=== PATIENT | female | born 1990 | race Caucasian/White ===

== ENCOUNTER 2019-06-03 23:42 | Emergency (ER) | payer SELFPAY ==
[~2019-06-03] VITALS: Ht 165.1 cm; Wt 77.1 kg
--- OUTSIDE RECORDS SUMMARY | 2019-06-03 23:51 | XMS REPORT ---
Author Author Migration, Doctor Organization [facility] Address Unknown Phone Unavailable Care Team Providers Care New Patient Escort Name Role Phone Migration, Doctor Unavailable Unavailable PROBLEMS Type Condition ICD9-CM Code OUS89-DQ Code Onset Dates Condition Status SNOMED Code Problem Acute bronchitis, unspecified organism J20.9 Active 63512214 Problem Gastroesophageal reflux disease, esophagitis presence not specified K21.9 Active [id number] ALLERGIES No Information ENCOUNTERS Encounter Location Date Diagnosis [facility] [address] [facility] [address] [id number], [place] [id number] Sep, Gastroesophageal reflux disease, esophagitis presence not specified K21.9 and Anterior cervical adenopathy R59.0 [facility] T[address] [place] [address] AVE [id number], [place] [id number] Jun, [facility] [address] [id number], [place] [id number] Jan, Allergic contact dermatitis, unspecified trigger L23.9 [facility] [address] [id number], [place] [id number] Sep, Acute bronchitis, unspecified organism J20.9 [facility] [id number], [place] [id number] Jul, Ingrown left greater toenail 703.0 [facility] TATE [address] [facility] [address] [id number], [place] [id number] Jun, Ingrowing toenail with infection 703.0 [facility] [id number], [place] [id number] March, [facility] [address] [id number], [place] [id number] March, [facility] [address] [id number], [place] [phone] Feb, [facility] [address] [id number] [place] [address] Dec, [facility] [address] [facility] [id number] [place] [address] Dec, [facility] [address] [facility] [id number] [place] [address] Apr, IMMUNIZATIONS No Known Immunizations SOCIAL HISTORY Never Assessed REASON FOR VISIT PLAN OF CARE VITAL SIGNS MEDICATIONS No Known Medications RESULTS No Results PROCEDURES No Known procedures INSTRUCTIONS MEDICATIONS ADMINISTERED No Known Medications MEDICAL (GENERAL) HISTORY Type Description Date Medical History depression Medical History anxiety Medical History migraine headaches Surgical History tubal ligation Surgical History shoulder repair Surgical History tonsillectomy and adenoidectomy
--- OUTSIDE RECORDS SUMMARY | 2019-06-03 23:51 | XMS REPORT ---
Author Author FRANCOISE CASILLAS Organization [facility] Address [address] [place] [address] Care Team Providers Care Patternmaker Sample Name Role Phone FRANCOISE CASILLAS Unavailable PROBLEMS Type Condition ICD9-CM Code QCC87-XD Code Onset Dates Condition Status SNOMED Code Problem Gastroesophageal reflux disease, esophagitis presence not specified K21.9 Active 755925996 Problem Acute bronchitis, unspecified organism J20.9 Active 35427858 ALLERGIES No Known Allergies ENCOUNTERS Encounter Location Date Diagnosis [facility] [employer] [address] [id number], [place] [id number] Sep, Gastroesophageal reflux disease, esophagitis presence not specified K21.9 and Anterior cervical adenopathy R59.0 [facility] [address] [id number], [place] [id number] Jun, [facility] [address] [id number], [place] [id number] Jan, Allergic contact dermatitis, unspecified trigger L23.[address] [facility] [id number], [place] [id number] Sep, Acute bronchitis, unspecified organism J20.9 [facility] [id number] [place] [id number] Jul, Ingrown left greater toenail 703.0 [facility] [address] [id number], [place] [id number] Jun, Ingrowing toenail with infection 703.0 [facility]IT[facility] [place] [address] [id number] [place] [phone] March, [facility] [place] [address] [id number] [place] [phone] March, [facility] [place] [id number] [place] [address], [place] [phone] Feb, [facility] [address] [facility] [id number] [place] [address] Dec, [facility] [address] [facility] [id number] [place] [address] Dec, [facility] [address] [facility] [id number] [place] [address] Apr, IMMUNIZATIONS No Known Immunizations SOCIAL HISTORY Never Assessed REASON FOR VISIT GERD, pt feels like throat is swollen Nicolas RN PLAN OF CARE Activity Details Follow Up prn Reason: Pending Test Ultrasound : Neck VITAL SIGNS Height 66.0 in 2018-10-06 Weight 187.7 lbs 2018-10-06 Temperature 98.0 degrees Fahrenheit 2018-10-06 Heart Rate 94 bpm 2018-10-06 Respiratory Rate 18 2018-10-06 BMI 30.29 kg/m2 2018-10-06 Blood pressure systolic 110 mmHg 2018-10-06 Blood pressure diastolic 80 mmHg 2018-10-06 MEDICATIONS Medication Instructions Dosage Frequency Start Date End Date Duration Status Zantac 150 Maximum Strength 150 MG Orally 3 times a day 1 tablet 8h 30 day(s) Active Pantoprazole Sodium 20 mg Orally Once a day 1 tablet 24h Sep, 30 day(s) Active RESULTS No Results PROCEDURES No Known procedures INSTRUCTIONS MEDICATIONS ADMINISTERED No Known Medications MEDICAL (GENERAL) HISTORY Type Description Date Medical History depression Medical History anxiety Medical History migraine headaches Surgical History tubal ligation Surgical History shoulder repair Surgical History tonsillectomy and adenoidectomy
--- OUTSIDE RECORDS SUMMARY | 2019-06-03 23:51 | XMS REPORT ---
Author Author VERO CHEN [facility] Address Unknown Phone Unavailable Care Team Providers Care Director Of Operations For Therapy Name Role Phone VERO CHEN Unavailable Allergies, Adverse Reactions, Alerts Substance Reaction Event Type N.K.D.A. Info Not Available Non Drug Allergy Problems Problem Type Condition ICD-9 Code Onset Dates Condition Status Assessment Ingrown left greater toenail 703.0 Active Medications Medication Code System Code Instructions Start Date End Date Status Dosage Xanax [facility] [address]-50 0.5 MG Orally Three times a day 1 tablet Zoloft [facility] [address]-20 100 MG Orally Once a day 1 tablet Procedures Procedure Coding System Code Date EXCISION OF NAIL FOLD, TOE CPT-4 49251 Jul 30, 2015 Vital Signs Date/Time: Jul 30, 2015 Temperature 98.7 F Weight 160.8 lbs Height 66.0 in BMI 25.95 Index Blood Pressure Diastolic 78 mmHg Blood Pressure Systolic 116 mmHg Cardiac Monitoring Heart Rate 80 bpm Results No Known Results Summary Purpose eClinicalWorks Submission
--- OUTSIDE RECORDS SUMMARY | 2019-06-03 23:51 | XMS REPORT ---
Author Author VIKTORIYA WISDOM [facility] Address [address] [place] [address] Care Team Providers Care Dispatcher Tow Truck Name Role Phone VIKTORIYA WISDOM Unavailable PROBLEMS Type Condition ICD9-CM Code HBQ88-KE Code Onset Dates Condition Status SNOMED Code Problem Acute bronchitis, unspecified organism J20.9 Active 43122614 ALLERGIES No Information ENCOUNTERS Encounter Location Date Diagnosis [address]00565100[place] [phone] Jun, [id number] [place] [id number] Jan, Allergic contact dermatitis, unspecified trigger L23.9 [address]00565100[place] [id number] Sep, Acute bronchitis, unspecified organism J20.9 [facility] [id number] [place] [id number] Jul, Ingrown left greater toenail 703.0 [address]00565100[place] [id number] Jun, Ingrowing toenail with infection 703.0 [facility] [id number] [place] [id number] March, [facility] [id number] [place] [id number] March, [facility] [id number] [place] [id number] Feb, [facility] [id number] [place] [address] Dec, [facility] [address] [address] Dec, [facility] [address] [facility] [id number] [place] [address] Apr, IMMUNIZATIONS No Known Immunizations SOCIAL HISTORY Never Assessed REASON FOR VISIT Requests return call PLAN OF CARE VITAL SIGNS MEDICATIONS Unknown Medications RESULTS No Results PROCEDURES No Known procedures INSTRUCTIONS MEDICATIONS ADMINISTERED No Known Medications MEDICAL (GENERAL) HISTORY Type Description Date Medical History depression Medical History anxiety Medical History migraine headaches Surgical History tubal ligation Surgical History shoulder repair Surgical History tonsillectomy and adenoidectomy
--- OUTSIDE RECORDS SUMMARY | 2019-06-03 23:51 | XMS REPORT ---
Author Author Migration, Doctor Organization [facility] Address Unknown Phone Unavailable Care Team Providers Care Bisque Cleaner Name Role Phone Migration, Doctor Unavailable Unavailable PROBLEMS Type Condition ICD9-CM Code JIG20-AU Code Onset Dates Condition Status SNOMED Code Problem Acute bronchitis, unspecified organism J20.9 Active 51730905 Problem Gastroesophageal reflux disease, esophagitis presence not specified K21.9 Active 000190943 ALLERGIES No Information ENCOUNTERS Encounter Location Date Diagnosis [facility] [address] [id number], [place] [id number] Sep, Gastroesophageal reflux disease, esophagitis presence not specified K21.9 and Anterior cervical adenopathy R59.0 [facility] TATE [address] [place] [address] AVE [id number], [place] [id number] Jun, [facility] [address] [id number], [place] [phone] Jan, Allergic contact dermatitis, unspecified trigger L23.9 [facility] [address] [id number], [place] [id number] Sep, Acute bronchitis, unspecified organism J20.9 [facility] [id number], [place] [phone] Jul, Ingrown left greater toenail 703.0 [facility] TATE [address] [facility] [address] [id number], [place] [id number] Jun, Ingrowing toenail with infection 703.0 [facility] [id number], [place] [phone] March, [facility] [address] [id number], [place] [phone] March, [facility] [address] [id number], [place] [id number] Feb, [facility] [address] [id number] [address] Dec, [facility] [address] [facility] [id number] [place] [address] Dec, [facility] [address] [facility] [id number] [place] [address] Apr, IMMUNIZATIONS No Known Immunizations SOCIAL HISTORY Never Assessed REASON FOR VISIT [facility] PLAN OF CARE VITAL SIGNS MEDICATIONS No Known Medications RESULTS No Results PROCEDURES No Known procedures INSTRUCTIONS MEDICATIONS ADMINISTERED No Known Medications MEDICAL (GENERAL) HISTORY Type Description Date Medical History depression Medical History anxiety Medical History migraine headaches Surgical History tubal ligation Surgical History shoulder repair Surgical History tonsillectomy and adenoidectomy
--- OUTSIDE RECORDS SUMMARY | 2019-06-03 23:51 | XMS REPORT ---
Author Author TERELL KEYS [facility] Address [address] [place] [address] Care Team Providers Care Radiology Interventional Physician Name Role Phone TERELL KEYS Unavailable PROBLEMS Type Condition ICD9-CM Code SAX30-YC Code Onset Dates Condition Status SNOMED Code Problem Acute bronchitis, unspecified organism J20.9 Active 79101019 ALLERGIES No Known Allergies ENCOUNTERS Encounter Location Date Diagnosis [address] [id number], [place] [phone] Jan, Allergic contact dermatitis, unspecified trigger L23.9 [address]00565100[place], [place] [id number] Sep, Acute bronchitis, unspecified organism J20.9 [facility] [id number] [place] [id number] Jul, Ingrown left greater toenail 703.[address] [id number], [place] [id number] Jun, Ingrowing toenail with infection 703.0 [facility] [id number], [place] [id number] March, [facility] [id number], [place] [id number] March, [facility] [id number], [place] [id number] Feb, [facility] [id number] [place] [phone] Dec, [facility] [id number] [place] [phone] Dec, [facility] [id number] [place] [phone] Apr, IMMUNIZATIONS No Known Immunizations SOCIAL HISTORY Never Assessed REASON FOR VISIT Sinus c/o, cough and chest congestion for 5 days and getting worse. afshanerRKaden PLAN OF CARE Activity Details Follow Up prn Reason: VITAL SIGNS Height 66.0 in 2017-10-03 Weight 177.7 lbs 2017-10-03 Temperature 98.6 degrees Fahrenheit 2017-10-03 Heart Rate 100 bpm 2017-10-03 Respiratory Rate 16 2017-10-03 Oximetry 98 % 2017-10-03 BMI 28.68 kg/m2 2017-10-03 Blood pressure systolic 128 mmHg 2017-10-03 Blood pressure diastolic 70 mmHg 2017-10-03 MEDICATIONS Medication Instructions Dosage Frequency Start Date End Date Duration Status Azithromycin 250 MG Orally Once a day 2 tablets on the first day, then 1 tablet daily for 4 days 24h Sep, Sep, 5 day(s) Active Ventolin HFA 108 (90 Base) MCG/ACT Inhalation 4 times a day 2 puffs as needed 6h Sep, Active Uzma-Kayla Pls Sinus & Cough 10-5-325 MG Orally every 4 hrs 2 capsules as needed 4h Active RESULTS No Results PROCEDURES Procedure Date Ordered Result Body Site MEASURE BLOOD OXYGEN LEVEL Oct 03, 2017 INSTRUCTIONS MEDICATIONS ADMINISTERED No Known Medications MEDICAL (GENERAL) HISTORY Type Description Date Medical History depression Medical History anxiety Medical History migraine headaches Surgical History tubal ligation Surgical History shoulder repair Surgical History tonsillectomy and adenoidectomy
--- OUTSIDE RECORDS SUMMARY | 2019-06-03 23:51 | XMS REPORT ---
Author Author VIKTORIYA WISDOM [facility] Address [address] [place] [address] Care Team Providers Care Pnp Name Role Phone VIKTORIYA WISDOM Unavailable PROBLEMS Type Condition ICD9-CM Code QVI07-MZ Code Onset Dates Condition Status SNOMED Code Problem Acute bronchitis, unspecified organism J20.9 Active 08009310 ALLERGIES No Known Allergies ENCOUNTERS Encounter Location Date Diagnosis [facility] TATE[address]00565100[place], [place] [phone] May, [address] [id number] [place] [phone] Jan, Allergic contact dermatitis, unspecified trigger L23.9 [address]00565100[place], [place] [phone] Sep, Acute bronchitis, unspecified organism J20.9 [facility] [id number] [place] [id number] Jul, Ingrown left greater toenail 703.[address] [id number], [place] [phone] Jun, Ingrowing toenail with infection 703.0 [facility] [id number] [place] [id number] March, [facility] [id number] [place] [phone] March, [facility] [id number] [place] [id number] Feb, [facility] [id number] [place] [phone] Dec, [facility] [id number] [place] [phone] Dec, [facility] [address] [facility] [id number] [place] [address] Apr, IMMUNIZATIONS No Known Immunizations SOCIAL HISTORY Never Assessed REASON FOR VISIT rash- c/o rash to arm, ear, chin, bottom- Merary SALCEDO PLAN OF CARE Activity Details Follow Up prn Reason: VITAL SIGNS Height 66.0 in 2018-01-22 Weight 173.6 lbs 2018-01-22 Temperature 97.8 degrees Fahrenheit 2018-01-22 Heart Rate 115 bpm 2018-01-22 Respiratory Rate 18 2018-01-22 BMI 28.02 kg/m2 2018-01-22 Blood pressure systolic 119 mmHg 2018-01-22 Blood pressure diastolic 85 mmHg 2018-01-22 MEDICATIONS Medication Instructions Dosage Frequency Start Date End Date Duration Status PredniSONE 20 MG Orally Once a day 2 tablet 24h Jan, Jan, 05 days Active Triamcinolone Acetonide 0.1 % Externally Twice a day 1 application to affected area 12h Jan, 07 days Active RESULTS No Results PROCEDURES No Known procedures INSTRUCTIONS MEDICATIONS ADMINISTERED No Known Medications MEDICAL (GENERAL) HISTORY Type Description Date Medical History depression Medical History anxiety Medical History migraine headaches Surgical History tubal ligation Surgical History shoulder repair Surgical History tonsillectomy and adenoidectomy
[2019-06-04] MEDS ORDERED: URIN1STR81 MC (00:25)
[2019-06-04 00:44] LABS: CLARITY,URINE SLIGHTLY CLOUDY; COLOR,URINE RED
[2019-06-04] MEDS ORDERED: KETOROLAC 30 MG/ML VIAL IVP ONE (00:45)
[2019-06-04 00:48] LABS: BACTERIA,URINE LARGE /HPF; SQUAMOUS EPITHELIAL CELL,UR 25-50 /HPF; WBC,URINE 50-100 /HPF
[2019-06-04 00:59] LABS: BASOPHILS % (AUTO) 0 % (0-10); EOSINOPHILS # (AUTO) 0.2 10^3/uL (0.0-0.3); EOSINOPHILS % (AUTO) 2 % (0-10); HEMATOCRIT 36 % (35-52); HEMOGLOBIN 11.8 G/DL (11.5-16.0); LYMPHOCYTES # (AUTO) 2.6 X 10^3 (1.0-4.0); LYMPHOCYTES % (AUTO) 30 % (12-44); MEAN CORPUSCULAR HEMOGLOBIN 28 PG (25-34); MEAN CORPUSCULAR HGB CONC 33 G/DL (32-36); MEAN CORPUSCULAR VOLUME 84 FL (80-99); MEAN PLATELET VOLUME 10.7 FL (7.4-10.4); MONOCYTES # (AUTO) 0.5 X 10^3 (0.0-1.0); MONOCYTES % (AUTO) 6 % (0-12); NEUTROPHILS # (AUTO) 5.3 X 10^3 (1.8-7.8); NEUTROPHILS % (AUTO) 61 % (42-75); PLATELET COUNT 291 10^3/uL (130-400); RED CELL DISTRIBUTION WIDTH 14.1 % (10.0-14.5); WHITE BLOOD COUNT 8.6 10^3/uL (4.3-11.0)
[2019-06-04 01:18] LABS: ALANINE AMINOTRANSFERASE 8 U/L (0-55); ALBUMIN 4.2 GM/DL (3.2-4.5); ALKALINE PHOSPHATASE 74 U/L (40-136); BILIRUBIN,TOTAL 0.3 MG/DL (0.1-1.0); BUN/CREATININE RATIO 11; CALCIUM 9.6 MG/DL (8.5-10.1); CARBON DIOXIDE 22 MMOL/L (21-32); CHLORIDE 108 MMOL/L (98-107); CREATININE SERUM 0.96 MG/DL (0.60-1.30); GFR ESTIMATED > 60; GLUCOSE 103 MG/DL (70-105); POTASSIUM 3.7 MMOL/L (3.6-5.0); SODIUM 142 MMOL/L (135-145)
--- NOTE | 2019-06-04 02:44 | ED GU-Female ---
General Chief Complaint: - Urinary Stated Complaint: KIDNEY PAIN,CAN'T URINATE Nursing Triage Note: PAINFUL/DIFFICULT URINATION, LOWER BACK/ABD PAIN X1 WEEK Nursing Sepsis Screen: No Definite Risk Source: patient Exam Limitations: no limitations History of Present Illness Date Seen by Provider: Jun 03, 2019 Time Seen by Provider: 23:48 Initial Comments This 28-year-old young lady presents to the emergency room with left lower quadrant pain radiating through to the back. Symptoms have been present for about one week. Urine has been brown in color. She has pelvic pain with urination. She denies nausea, vomiting, constipation, or diarrhea. Last menstrual period was March 26. Her primary care provider is the [facility] in [place]. She took Azo about 3 hours ago. Allergies and Home Medications Allergies Coded Allergies: No Known Drug Allergies (Unverified , 06/04/19) Home Medications Cephalexin 500 Mg Capsule, 500 MG PO QID Prescribed by: ZOILA JC on 06/04/19 0246 Patient Home Medication List Home Medication List Reviewed: Yes Review of Systems Review of Systems Constitutional: no symptoms reported EENTM: no symptoms reported Respiratory: no symptoms reported Cardiovascular: no symptoms reported Gastrointestinal: see HPI Genitourinary: see HPI : No LMP: March 26, 2019 Musculoskeletal: no symptoms reported Skin: no symptoms reported Psychiatric/Neurological: No Symptoms Reported Endocrine: No Symptoms Reported Past Jjxueti-Ongsyf-Stnxwp Hx Past Med/Social Hx: Reviewed Nursing Past Med/Soc Hx Patient Social History Alcohol Use: Rarely Uses Recreational Drug Use: No Smoking Status: Never a Smoker 2nd Hand Smoke Exposure: No Recent Foreign Travel: No Contact w/Someone Who Travel: No Recent Infectious Disease Expo: No Recent Hopitalizations: No Physical Abuse: No Sexual Abuse: No Mistreated: No Fear: No Immunizations Up To Date Tetanus Booster (TDap): Unknown Seasonal Allergies Seasonal Allergies: No Past Medical History Surgeries: Yes (RIGHT SHOULDER) Appendectomy, Orthopedic, Tonsillectomy, Tubal Ligation Respiratory: No Cardiac: No Neurological: No : No 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 oz. 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 Because of the significant pain she is in and presence of blood in her urine, CT to rule out obstructing ureteral stone as cause of urinary tract infection was sought. No stone was seen in the ureters. Patient was treated with Rocephin for UTI. Diagnostic Imaging Diagonstic Imaging: CT Plain Films/CT/US/NM/MRI: abdomen, pelvis Comments CT abdomen and pelvis viewed by me and report reviewed. See report below: NAME: LINDA DAVISON [facility] REC#: [id number] PT STATUS: DEP ER : 1990 PHYSICIAN: ZOILA HARRIS MD ADMIT DATE: 06/03/19/ER Signed Date of Exam: 06/04/19 CT ABD/PELVIS WO(KIDNEY STONE) PROCEDURE: CT urinary tract, rule out kidney stone. TECHNIQUE: Multiple contiguous axial images were obtained through the abdomen and pelvis without the use of intravenous contrast. Auto Exposure Controls were utilized during the CT exam to meet ALARA standards for radiation dose reduction. INDICATION: Flank pain. FINDINGS: The heart size is normal. The lung bases are clear. Liver is normal in size without focal lesions. Gallbladder is contracted. There is no biliary ductal dilatation. Spleen is normal. The pancreas and adrenal glands are unremarkable. Kidneys are normal in appearance. Aorta is nonaneurysmal. Bowel gas pattern is nonspecific. There is no free air. There is no ascites. There are no focal inflammatory changes. There is no pelvic mass, adenopathy or free fluid. The osseous structures are unremarkable. IMPRESSION: Unremarkable noncontrast CT abdomen and pelvis. Dictated by: Dictated on workstation # [id number] Dict: 06/04/19 0754 Trans: 06/04/19900 Interpreted by: ADRIEN MARTINES MD Electronically signed by: ADRIEN MARTINES MD 06/04/19900 Departure Impression Primary Impression: Urinary tract infection Qualified Codes: N39.0 - Urinary tract infection, site not specified; R31.9 - Hematuria, unspecified Additional Impression: Pelvic pain Disposition: HOME, SELF-CARE Condition: Improved Departure-Patient Inst. Decision time for Depature: 02:43 Referrals: NO,LOCAL PHYSICIAN (PCP/Family) Primary Care Physician Patient Instructions: Blood in the Urine (Hematuria) in Adults, Urinary Tract Infection, Adult (DC) Add. Discharge Instructions: Drink plenty of clear liquids. Complete your antibiotics as prescribed. Follow-up with your primary care provider on Thursday to review urine culture results. You should also have your urine checked again after you completely antibiotics to ensure the blood clears. Return to the emergency room if you have worsening symptoms or develop additional symptoms such as fever over 100. For pain you may take ibuprofen up to 600 mg every 6 hours and/or Tylenol (acetaminophen) up to 1000 mg every 6 hours. You may continue to use Azo as well. All discharge instructions reviewed with patient and/or family. Voiced understanding. Scripts Cephalexin (Keflex) 500 Mg Capsule 500 MG PO QID, #28 CAP Prov: ZOILA HARRIS MD 06/04/19 Copy Copies To 1: LUPILLO LEE JOSHUA T MD Jun 04, 2019 02:44
[2019-06-04] MEDS ORDERED: cefTRIAXone FOR IV USE 1,000 MG in WATER (STERILE) FOR INJECTION 10 ML IV ONE (02:45)
[2019-06-04] MEDS ORDERED: CEPH-507 PO (02:46)
[2019-06-04 02:55] VITALS: BP 106/64
--- NOTE | 2019-06-04 07:56 | Diagnostic Imaging Report ---
PROCEDURE: CT urinary tract, rule out kidney stone. TECHNIQUE: Multiple contiguous axial images were obtained through the abdomen and pelvis without the use of intravenous contrast. Auto Exposure Controls were utilized during the CT exam to meet ALARA standards for radiation dose reduction. INDICATION: Flank pain. FINDINGS: The heart size is normal. The lung bases are clear. Liver is normal in size without focal lesions. Gallbladder is contracted. There is no biliary ductal dilatation. Spleen is normal. The pancreas and adrenal glands are unremarkable. Kidneys are normal in appearance. Aorta is nonaneurysmal. Bowel gas pattern is nonspecific. There is no free air. There is no ascites. There are no focal inflammatory changes. There is no pelvic mass, adenopathy or free fluid. The osseous structures are unremarkable. IMPRESSION: Unremarkable noncontrast CT abdomen and pelvis. Dictated by: Dictated on workstation # [id number]
== END 2019-06-04 02:56 | disposition home or self-care (01) ==
LOC: ER 23:47
DX: N39.0 Urinary tract infection, site not specified (principal); Z90.49 Acquired absence of other specified parts of digestive tract; Z90.89 Acquired absence of other organs; Z98.51 Tubal ligation status
CPT/HCPCS: 36415; 74176; 80053; 81000; 84703; 85025; 87088; 96374; 96375

== ENCOUNTER → 2020-02-16 | Outpatient (CLI) | payer OTHER ==
[~2020-02-16] MED LIST: CEPH-507 PO; URIN1STR81 MC
--- NOTE | 2020-02-16 09:35 | Diagnostic Imaging Report ---
INDICATION: Bilateral breast pain. No prior studies are available for comparison. 2-D and 3-D bilateral diagnostic mammography was performed with CAD. Both breasts are heterogeneously dense, limiting the sensitivity of mammography. There is a circumscribed density in the upper and inner aspect of the left breast approximately 4 to 5 cm from the nipple. This most likely represents a cyst. No other suspicious abnormality is seen. In particular, no abnormality in the outer portions of both breasts is seen at the areas of pain. No malignant appearing microcalcifications are seen. Axillae are unremarkable. IMPRESSION: BI-RADS 0 1. Circumscribed density upper inner left breast mid depth, most likely a cyst. Further evaluation with ultrasound is recommended. 2. No abnormalities identified at the areas of pain in the outer portions of both breasts. Even so, directed sonographic interrogation of the areas of pain in both breasts is recommended and will be performed today. Dictated by: Dictated on workstation # [id number]
--- NOTE | 2020-02-16 10:40 | Diagnostic Imaging Report ---
INDICATION: Bilateral breast pain and left breast density. Correlation is made with diagnostic mammogram earlier same day. Sonographic interrogation of the areas of pain in the lateral portions of both breasts was performed. The outer right breast is unremarkable. No sonographic abnormality is seen. No solid or cystic mass is identified. There is a somewhat lobulated hypoechoic solid nodule at the 2:00 location of the left breast, 4 cm from the nipple measuring 12 mm x 8 mm x 11 mm. This does show some internal vascularity. There is posterior acoustic enhancement. This most likely represents a fibroadenoma. Patient reportedly had a fibroadenoma removal approximately 9 years earlier. This likely accounts for the density noted mammographically although the density mammographically appear to be slightly more medial. This is likely owing to breast positioning. No other sonographic abnormalities in the left breast are identified. IMPRESSION: BI-RADS Category 4 1. Unremarkable right breast. 2. Macro lobulated hypoechoic solid nodule 2:00 location of the left breast, 4 cm from the nipple. This most likely represents a fibroadenoma. Even so, tissue sampling is recommended. This would be amenable to ultrasound-guided core biopsy. ACR BI-RADS Category 3: Probably benign findings. Dictated by: Dictated on workstation # [id number]
== END ==
LOC: RAD 09:04
PROVIDERS: ATTEND Nurse Practitioner Family
DX: N63.21 Unspecified lump in the left breast, upper outer quadrant (principal)
CPT/HCPCS: 76642; 77066

== ENCOUNTER → 2020-02-22 | Outpatient (CLI) | payer OTHER ==
[~2020-02-22] VITALS: Ht 165.1 cm; Wt 79.5 kg
[~2020-02-22] MED LIST changes: +LIDOCAINE 1% INJ 20 ML 20 ML VIAL INJ ONE; +LIDOCAINE 1% INJ 20 ML 20 ML VIAL ONE
--- NOTE | 2020-02-22 12:27 | Diagnostic Imaging Report ---
EXAMINATION: Ultrasound-guided biopsy left breast INDICATION: Left breast mass The left breast ultrasound exam performed on 02/16/2020 noted a lobulated hypoechoic solid nodule in the 2 o'clock position of the left breast approximately 4 cm from the nipple. This finding was felt to most likely represent a fibroadenoma but an ultrasound-guided biopsy was recommended to exclude malignancy. Following the aseptic preparation of the skin and administration of local anesthesia an ultrasound guided biopsy of the area in question was performed using a 14-gauge achieve needle with ultrasound guidance. 4 samples were made. Following the procedure a clip was inserted into the biopsy site. The patient tolerated the procedure well and was dismissed in good condition. IMPRESSION: There has been a successful ultrasound-guided biopsy of the solid lesion in the 2 o'clock position left breast. A postprocedure mammogram is pending. Dictated by: Dictated on workstation # [id number]
--- NOTE | 2020-02-22 15:43 | Diagnostic Imaging Report ---
INDICATION: Post left breast biopsy. EXAMINATION: Diagnostic left mammogram. FINDINGS: The patient underwent ultrasound-guided biopsy of the left breast earlier today. The lesion was located in the 2 o'clock position of the breast. On this exam, there is a radiopaque marker in the region of the biopsy site. The nodule in question, itself, is difficult to visualize however. IMPRESSION: 1. There is a biopsy marker in the upper outer quadrant of the left breast. 2. A final pathology report is pending. Dictated by: Dictated on workstation # [id number]
== END ==
LOC: RAD 10:32
PROVIDERS: ATTEND Nurse Practitioner Family
DX: D24.2 Benign neoplasm of left breast (principal)
CPT/HCPCS: 19083